=== PATIENT | female | born 1995 | race Hispanic/Latino ===

== ENCOUNTER 2018-01-31 05:39 | Day surgery (SDC) | payer OTHER ==
[2018-01-30 13:42] VITALS: BP 99/64
[2018-01-30 14:04] LABS: BASOPHILS % (AUTO) 0.4 % (0.0-5.0); EOSINOPHILS % (AUTO) 1.9 % (0.0-8.0); HEMATOCRIT 35.5 % (36-48); LYMPHOCYTES % (AUTO) 19.1 % (21.0-51.0); MEAN CORPUSCULAR HEMOGLOBIN 29.8 pg (27.0-33.0); MEAN CORPUSCULAR HGB CONC 35.3 g/dL (32.0-36.0); MEAN CORPUSCULAR VOLUME 84.7 fL (80-100); MONOCYTES % (AUTO) 8.3 % (3.0-13.0); NEUTROPHILS % (AUTO) 70.3 % (40.0-77.0); PLATELET COUNT (AUTO) 207 K/uL (130-400); RED BLOOD CELL COUNT(AUTO) 4.19 MIL/uL (4.00-5.50); RED CELL DISTRIBUTION WIDTH 13.2 % (11.0-15.5); WHITE BLOOD COUNT (AUTO) 8.6 K/uL (4.8-10.8)
[~2018-01-31] VITALS: Ht 167.6 cm; Wt 75.3 kg
[~2018-01-31 05:39] MED LIST: LACTATED RINGERS 1000ML 1,000 ML IV SCH
[2018-01-31 05:55] VITALS: BP 125/72
[2018-01-31] MEDS ORDERED: OXYTOCIN 10 USP UNITS/ML ONE ×2 (07:15→07:32)
[2018-01-31] MEDS ORDERED: DEXAMETHASONE SOD PHOSPHATE 10MG/ML 1ML VIAL ONE (07:15)
[2018-01-31] MEDS ORDERED: ONDANSETRON HCL 4 MG/2 ML VIAL ONE (07:15)
[2018-01-31] MEDS ORDERED: PROMETHAZINE HCL 25 MG/ML 1ML AMPULE IM PRN (08:15)
[2018-01-31] MEDS ORDERED: RACEPINEPHRINE HCL 2.25% 0.5 ML NEB SOLN NEB PRN (08:15)
[2018-01-31] MEDS ORDERED: IPRATROPIUM/ALBUTEROL SULFATE 3 ML SOLUTION IH PRN (08:15)
[2018-01-31] MEDS ORDERED: MORPHINE SULFATE 5 MG/ML VIAL IVP PRN (08:15)
[2018-01-31] MEDS ORDERED: KETOROLAC TROMETHAMINE 30MG/ML IVP PRN (08:15)
[2018-01-31] MEDS ORDERED: METOCLOPRAMIDE 10 MG/2 ML VIAL IVP PRN (08:15)
[2018-01-31] MEDS ORDERED: ONDANSETRON HCL 4 MG/2 ML VIAL IVP PRN (08:15)
[2018-01-31] MEDS ORDERED: NALOXONE HCL 0.4 MG/1 ML ML IVP PRN (08:15)
[2018-01-31] MEDS ORDERED: FENTANYL CITRATE PF 50 MCG/1 ML 2ML VIAL IVP PRN (08:15)
[2018-01-31] MEDS ORDERED: MEPERIDINE-PF 25 MG/ML SYG IVP PRN (08:15)
[2018-01-31 08:38] VITALS: BP 112/73
[2018-01-31 08:43] VITALS: BP 113/73
[2018-01-31 08:58] VITALS: BP 124/70
[2018-01-31 09:13] VITALS: BP 112/72
== END 2018-01-31 09:42 | disposition home or self-care (01) ==
LOC: DAH 05:39
PROVIDERS: ATTEND Obstetrics & Gynecology
DX: O02.1 Missed abortion (principal); Z80.49 Family history of malignant neoplasm of other genital organs
CPT/HCPCS: 36415; 59820; 85025; 86850; 86900; 86901; 88305; A4510; A4600; A4606; J1100; J2405; J2590 ×2; J7120 ×3

== ENCOUNTER → 2019-05-09 | Outpatient (CLI) | payer OTHER | END | disposition home or self-care (01) | LOC: LAB 16:24 | PROVIDERS: ATTEND Family Medicine | DX: Z02.89 Encounter for other administrative examinations (principal) | CPT/HCPCS: 36415; 86706; 86708 ==

== ENCOUNTER → 2020-03-05 | Outpatient (CLI) | payer OTHER | END | disposition home or self-care (01) | LOC: RAH 09:48 | PROVIDERS: ATTEND Obstetrics & Gynecology | DX: Z34.81 Encounter for supervision of other normal pregnancy, first trimester (principal); Z3A.14 14 weeks gestation of pregnancy ==

== ENCOUNTER → 2020-05-08 | Outpatient (CLI) | payer OTHER | END | disposition home or self-care (01) | LOC: RAH 13:51 | PROVIDERS: ATTEND Obstetrics & Gynecology | DX: Z36.2 Encounter for other antenatal screening follow-up (principal); Z3A.21 21 weeks gestation of pregnancy | CPT/HCPCS: 76805 ==

== ENCOUNTER → 2020-06-20 | Outpatient (CLI) | payer OTHER ==
[2020-06-20 11:57] LABS: BASOPHILS % (AUTO) 0.3 % (0.0-5.0); EOSINOPHILS % (AUTO) 0.4 % (0.0-8.0); HEMATOCRIT 33.5 % (36-48); LYMPHOCYTES % (AUTO) 21.3 % (21.0-51.0); MEAN CORPUSCULAR HEMOGLOBIN 28.5 pg (27.0-33.0); MEAN CORPUSCULAR HGB CONC 33.4 g/dL (32.0-36.0); MEAN CORPUSCULAR VOLUME 85.2 fL (79-99); MONOCYTES % (AUTO) 5.8 % (3.0-13.0); NEUTROPHILS % (AUTO) 71.7 % (40.0-77.0); PLATELET COUNT (AUTO) 172 K/uL (130-400); RED BLOOD CELL COUNT(AUTO) 3.93 MIL/uL (4.00-5.50); RED CELL DISTRIBUTION WIDTH 12.5 % (11.0-15.5); WHITE BLOOD COUNT (AUTO) 9.6 K/uL (4.8-10.8)
== END | disposition home or self-care (01) ==
LOC: LAB 11:12
PROVIDERS: ATTEND Obstetrics & Gynecology
DX: Z36.89 Encounter for other specified antenatal screening (principal); Z3A.27 27 weeks gestation of pregnancy
CPT/HCPCS: 36415; 82950; 85025

== ENCOUNTER → 2020-07-01 | Emergency (ER) | payer OTHER ==
[~2020-07-01] MED LIST changes: -LACTATED RINGERS 1000ML 1,000 ML IV SCH; +LIDOCAINE HCL 1% 20 ML VIAL ONE
== END ==
LOC: EDH 17:48
DX: O26.891 Other specified pregnancy related conditions, first trimester (principal); L02.31 Cutaneous abscess of buttock; Z87.891 Personal history of nicotine dependence; Z79.899 Other long term (current) drug therapy; Z3A.01 Less than 8 weeks gestation of pregnancy
CPT/HCPCS: 10060

== ENCOUNTER → 2020-08-20 | Outpatient (CLI) | payer OTHER | END | disposition home or self-care (01) | LOC: RAH 11:19 | PROVIDERS: ATTEND Obstetrics & Gynecology | DX: O09.893 Supervision of other high risk pregnancies, third trimester (principal) | CPT/HCPCS: 76805 ==

== ENCOUNTER → 2020-09-01 | Outpatient (CLI) | payer OTHER ==
[2020-09-01 17:02] LABS: BASOPHILS % (AUTO) 0.3 % (0.0-5.0); EOSINOPHILS % (AUTO) 0.9 % (0.0-8.0); LYMPHOCYTES % (AUTO) 20.5 % (21.0-51.0); MEAN CORPUSCULAR HEMOGLOBIN 27.5 pg (27.0-33.0); MEAN CORPUSCULAR HGB CONC 33.5 g/dL (32.0-36.0); MEAN CORPUSCULAR VOLUME 81.9 fL (79-99); MONOCYTES % (AUTO) 7.9 % (3.0-13.0); NEUTROPHILS % (AUTO) 69.6 % (40.0-77.0); PLATELET COUNT (AUTO) 200 K/uL (130-400); RED BLOOD CELL COUNT(AUTO) 4.15 MIL/uL (4.00-5.50); RED CELL DISTRIBUTION WIDTH 13.2 % (11.0-15.5); WHITE BLOOD COUNT (AUTO) 9.1 K/uL (4.8-10.8)
[2020-09-01 17:28] LABS: AMPHET/METH SCREEN,URINE NEGATIVE (NEGATIVE); BARBITURATE SCREEN, URINE NEGATIVE (NEGATIVE); BENZODIAZEPINES SCREEN,URINE NEGATIVE (NEGATIVE); CANNABINOID SCREEN,URINE NEGATIVE (NEGATIVE); COCAINE SCREEN,URINE NEGATIVE (NEGATIVE); OPIATE SCREEN,URINE NEGATIVE (NEGATIVE); PHENCYCLIDINE SCREEN,URINE NEGATIVE (NEGATIVE)
[2020-09-03 08:07] LABS: RAPID PLASMA REAGIN NONREACTIVE (NONREACTIVE)
[2020-09-04 16:11] LABS: CHLAMYDIA DNA N.A.AMPLIFY Negative (Negative)
== END | disposition home or self-care (01) ==
LOC: LAB 15:58
PROVIDERS: ATTEND Obstetrics & Gynecology
DX: Z36.89 Encounter for other specified antenatal screening (principal)
CPT/HCPCS: 36415; 80305; 85025; 86592; 86701; 86850; 86900; 86901; 87088; 87390; 87486; 87797

== ENCOUNTER 2020-09-11 09:09 | Observation (INO) | payer OTHER, MEDICAID ==
[~2020-09-11] VITALS: Ht 167.6 cm; Wt 93.9 kg
[2020-09-11 10:03] LABS: APPEARANCE,URINE Clear (CLEAR); BILIRUBIN,URINE Negative (NEGATIVE); COLOR,URINE Yellow (YELLOW); GLUCOSE, URINE (UA) Negative (NEGATIVE); KETONES,URINE Negative (NEGATIVE); LEUKOCYTE ESTERASE ,URINE Negative (NEGATIVE); NITRATE,URINE Negative (NEGATIVE); OCCULT BLOOD,URINE Negative (NEGATIVE); PH,URINE 7.5 (5.0-8.0); PROTEIN,URINE Negative (NEGATIVE); UROBILINOGEN,URINE 0.2 mg/dL (0.2-1.0)
[2020-09-12] MEDS ORDERED: PNV1TABL17 PO (10:43)
== END 2020-09-11 11:00 | disposition home or self-care (01) ==
LOC: EDH 09:09 → LDH 09:10
PROVIDERS: ADMIT Obstetrics & Gynecology; ATTEND Obstetrics & Gynecology
DX: O42.92 Full-term premature rupture of membranes, unspecified as to length of time between rupture and onset of labor (principal); Z87.891 Personal history of nicotine dependence; Z3A.39 39 weeks gestation of pregnancy
CPT/HCPCS: 59025; 81003; 99284; G0378 ×2

== ENCOUNTER 2020-09-11 16:08 | Inpatient (IN) | payer OTHER, MEDICAID ==
[~2020-09-11] VITALS: Ht 167.6 cm; Wt 93.9 kg
[2020-09-11] MEDS ORDERED: ROPIVACAINE 0.2% 100ML VIAL 100 ML EP SCH (17:15)
[2020-09-11] MEDS ORDERED: LACTATED RINGERS 500 ML 500 ML IV PRN (17:15)
[2020-09-11] MEDS ORDERED: BUTORPHANOL TARTRATE 2 MG/ML IVP PRN (17:15)
[2020-09-11] MEDS ORDERED: NALOXONE HCL 0.4 MG/1 ML ML IV PRN (17:15)
[2020-09-11] MEDS ORDERED: EPHEDRINE SULFATE 50 MG/ML AMPULE IVP PRN (17:15)
[2020-09-11] MEDS ORDERED: LACTATED RINGERS 1000ML 1,000 ML IV PRN (17:15)
[2020-09-11] MEDS ORDERED: AMPICILLIN 2GM+NS 100ML 100 ML IV SCH (17:15)
[2020-09-11 17:57] LABS: MEAN CORPUSCULAR HEMOGLOBIN 26.8 pg (27.0-33.0); MEAN CORPUSCULAR VOLUME 81.3 fL (79-99); RED BLOOD CELL COUNT(AUTO) 4.06 MIL/uL (4.00-5.50); RED CELL DISTRIBUTION WIDTH 13.3 % (11.0-15.5); WHITE BLOOD COUNT (AUTO) 9.8 K/uL (4.8-10.8)
[2020-09-11 19:44] VITALS: BP 120/88
[2020-09-11] MEDS ORDERED: AMPICILLIN 1GM+NS 50ML 50 ML IV SCH (21:00)
[2020-09-12] MEDS ORDERED: OXYTOCIN-LR 20 UNITS/1000 ML 1,000 ML IV SCH (06:00)
[2020-09-12] MEDS ORDERED: LIDOCAINE HCL 1% 20 ML VIAL ONE (07:17)
[2020-09-12] MEDS ORDERED: WITCH HAZEL 1 PAD TP PRN (08:15)
[2020-09-12] MEDS ORDERED: BENZOCAINE/LANOLIN/ALOE VERA 60 ML AEROSOL TP PRN (08:15)
[2020-09-12] MEDS ORDERED: MEASLES/MUMPS/RUBELLA VACCINE, LIVE 0.5 ML/VIAL SQ PRN (08:15)
[2020-09-12] MEDS ORDERED: ACETAMINOPHEN-CODEINE 300/30MG TAB PO PRN (08:15)
[2020-09-12] MEDS ORDERED: LANOLIN 30GM OINTMENT TP PRN (08:15)
[2020-09-12] MEDS ORDERED: ACETAMINOPHEN 325 MG TAB PO PRN (08:15)
[2020-09-12] MEDS ORDERED: DIPH,PERTUSS(ACELL),TET VAC/PF 0.5 ML VIAL IM PRN (08:15)
[2020-09-12 09:48] VITALS: BP 107/67
[2020-09-12] MEDS: DOCUSATE SODIUM 100 MG CAP PO SCH ×2 (09:55→20:50)
[2020-09-12] MEDS: IBUPROFEN 600 MG TABLET PO PRN ×2 (09:55→17:23)
[2020-09-12] MEDS ORDERED: PNV1TABL17 PO (10:43)
[2020-09-12 12:45] VITALS: BP 113/71
[2020-09-12 16:27] VITALS: BP 111/81
[2020-09-12 19:11] VITALS: BP 123/80
[2020-09-12] MEDS ORDERED: OXYTOCIN 10 USP UNITS/ML ONE (21:22)
[2020-09-12 23:35] VITALS: BP 127/79
[2020-09-13 04:08] VITALS: BP 128/74
[2020-09-13 06:12] LABS: HEPATITIS Bs ANTIGEN SCREEN P Negative (Negative)
[2020-09-13 07:23] VITALS: BP 120/76
[2020-09-13] MEDS: DOCUSATE SODIUM 100 MG CAP PO SCH (08:04)
[2020-09-13] MEDS: IBUPROFEN 600 MG TABLET PO PRN (08:06)
[2020-09-13 11:15] VITALS: BP 121/75
== END 2020-09-13 16:10 | disposition home or self-care (01) | DRG 807 ==
LOC: OBSVTOIN 16:08 → LDH 16:08 → WSH 09-12 09:45
PROVIDERS: ADMIT Obstetrics & Gynecology; ATTEND Obstetrics & Gynecology
PROC: 10E0XZZ Delivery of Products of Conception, External Approach (ICD-10-PCS; principal; 2020-09-12)
PROC: 0KQM0ZZ Repair Perineum Muscle, Open Approach (ICD-10-PCS; 2020-09-12)
PROC: 3E0R3BZ Introduction of Anesthetic Agent into Spinal Canal, Percutaneous Approach (ICD-10-PCS; 2020-09-12)
PROC: 00HU33Z Insertion of Infusion Device into Spinal Canal, Percutaneous Approach (ICD-10-PCS; 2020-09-12)
PROC: 3E0234Z Introduction of Serum, Toxoid and Vaccine into Muscle, Percutaneous Approach (ICD-10-PCS; 2020-09-12)
PROC: 3E0134Z Introduction of Serum, Toxoid and Vaccine into Subcutaneous Tissue, Percutaneous Approach (ICD-10-PCS; 2020-09-12)
DX: O69.81X0 Labor and delivery complicated by cord around neck, without compression, not applicable or unspecified (principal); Z37.0 Single live birth; Z3A.39 39 weeks gestation of pregnancy; O70.1 Second degree perineal laceration during delivery; Z23 Encounter for immunization
CPT/HCPCS: 36415; 85027; 86156; 86592; 86850; 86900; 86901; 87340; 90715; A4314; G0378; J0595; J2590; J2795; J7120

== ENCOUNTER → 2021-04-14 | Outpatient (CLI) | payer OTHER, MEDICAID ==
[~2021-04-14] MED LIST changes: -LIDOCAINE HCL 1% 20 ML VIAL ONE; +PNV1TABL17 PO
== END | disposition home or self-care (01) ==
LOC: RAH 13:50
PROVIDERS: ATTEND Obstetrics & Gynecology
DX: O20.0 Threatened abortion (principal); Z3A.14 14 weeks gestation of pregnancy
CPT/HCPCS: 76801

== ENCOUNTER → 2021-08-07 | Outpatient (CLI) | payer OTHER, MEDICAID ==
[2021-08-07 16:34] LABS: BASOPHILS % (AUTO) 0.3 % (0.0-5.0); EOSINOPHILS % (AUTO) 0.9 % (0.0-8.0); MEAN CORPUSCULAR HEMOGLOBIN 27.1 pg (27.0-33.0); MEAN CORPUSCULAR HGB CONC 32.6 g/dL (32.0-36.0); MEAN CORPUSCULAR VOLUME 83.3 fL (79-99); MONOCYTES % (AUTO) 6.6 % (3.0-13.0); NEUTROPHILS % (AUTO) 61.9 % (40.0-77.0); PLATELET COUNT (AUTO) 233 K/uL (130-400); RED BLOOD CELL COUNT(AUTO) 4.68 MIL/uL (4.00-5.50); RED CELL DISTRIBUTION WIDTH 13.1 % (11.0-15.5); WHITE BLOOD COUNT (AUTO) 9.1 K/uL (4.8-10.8)
[2021-08-08 08:19] LABS: RAPID PLASMA REAGIN NONREACTIVE (NONREACTIVE)
== END | disposition home or self-care (01) ==
LOC: RAH 15:19
PROVIDERS: ATTEND Nurse Practitioner Women's Health
DX: Z32.01 Encounter for pregnancy test, result positive (principal)
CPT/HCPCS: 36415; 85025; 86592; 86701; 86762; 86850; 86900; 86901; 87390

== ENCOUNTER → 2021-08-19 | Outpatient (CLI) | payer OTHER, MEDICAID | END | disposition home or self-care (01) | LOC: RAH 11:27 | PROVIDERS: ATTEND Nurse Practitioner Women's Health | DX: Z32.01 Encounter for pregnancy test, result positive (principal) | CPT/HCPCS: 36415; 76801; 85025; 86592; 86701; 86762; 86850; 86900; 86901; 87390 ==